=== PATIENT | male | born 1985 | race Caucasian/White ===

== ENCOUNTER 2022-10-20 13:07 | Emergency (ER) | payer BC, SELFPAY ==
[2022-10-20 13:10] VITALS: BP 161/95; PULSE 109; RESP 24; TEMP 36.8; O2SAT 99; BMI 28.3
--- NOTE | 2022-10-20 13:38 | ED_ITS ---
HPI - General Adult General Chief complaint: Altered Mental Status Stated complaint: Mental health Time Seen by Provider: 10/20/22 13:20 History of Present Illness HPI narrative: This 36-year-old male comes in reporting anxiety, insomnia, and depression symptoms. He has not been sleeping well because his recently left him. He states that she is his best friend. They have been for 17 years and are now . They have 4 children. His states that she wants to be away from him but is not taking any legal action. He states that they went on a cruise to [place] last summer and he did not have any other communication with anyone else because he was with her who is his only and best friend. After this she stated to him that she was not satisfied in the relationship and she listed several things that he could improve on. He states that he has been working on these things and some of them very successful and others not so much. He states that he has been on fluoxetine for the past 3 months or so and this has not helped him with his depression and anxiety symptoms. His is also on this medication. He states that he has lost 65 lb over the last several months because he is distraught over his current circumstances at home. He does smoke tobacco and marijuana but denies other street drugs or alcohol. He does not have any auditory or visual hallucinations. He states that he has difficulty sleeping at night because of these circumstances. Related Data Previous Rx's Medication Instructions Recorded escitalopram oxalate 10 mg tablet 10 mg PO DAILY #30 tabs 10/20/22 (Lexapro) lorazepam 1 mg tablet (Ativan) 1 mg PO BID PRN #15 tabs 10/20/22 Allergies Allergy/AdvReac Type Severity Reaction Status Date / Time No Known Drug Allergies Allergy Verified 10/20/22 13:15 Review of Systems Status of ROS: Reports: 10 or more systems reviewed and unremarkable except as noted in History and below Narrative: Constitutional: No fevers, no weight gain or loss. Eyes: No discharge. No vision changes. HENT: No congestion, no sore throat, no ear pain. Cardiovascular: No chest pain, no palpitations. Respiratory: No shortness of breath, no wheezes, no cough. Gastrointestinal: No abdominal pain, no vomiting, no diarrhea. Genitourinary: No dysuria, no hematuria. Musculoskeletal: Normal range of motion. Skin: No rashes, no pruritis. Neurological: No dizziness, weakness, sensory change, speech change. Endo/Heme/Allergies: No bruising or bleeding. No polydipsia. Pysch: Depression and anxiety symptoms. Insomnia. He has had thoughts of ending his life but states that he would never do this as he loves himself and his children and family. All other systems reviewed and are negative. PFSH PFS Social History Smoking Status: Current every day smoker What tobacco products do you use: cigarettes Second hand tobacco smoke exposure: No How often do you have a drink containing alcohol: 2-4 times a month AUDIT-C Alcohol total score: 2 Non-prescribed substance use: denies use service: No Exam Narrative: Exam Narrative: Constitutional: Well-developed, well-nourished, no acute distress. HEENT: Normocephalic, atraumatic. Neck: Normal range of motion. Nontender. Supple. Heart: Regular. No murmurs. Normal rate. Intact distal pulses. Lungs: Clear to auscultation. No chest discomfort. No wheezes, rhonchi, or rales. Abdomen: Normal bowel sounds. Nontender. No rebound tenderness. Genitalia: Deferred. Back: No midline tenderness. Normal range of motion. Extremities: Normal range of motion. No injury. Skin: Intact. No rash. Warm. No erythema or pallor. Neurologic: No altered sensation. No weakness. Alert and oriented. Psychiatric: Cooperative. Tearful. Seeking help. Anxious. Nursing notes and vitals signs are reviewed. Const: Vital Signs, click to edit/add: Vital Signs - 24 hr 10/20/22 13:10 Temperature 98.3 F Pulse Rate [Pulse Oximeter] 109 H Respiratory Rate 24 Blood Pressure [Ri t Upper Arm] 161/95 H Pulse Oximetry 99 Oxygen Delivery Me thod Room Air Course Vital Signs Vital signs: Initial Vital Signs Temperature 98.3 F 10/20/22 13:10 Temperature Source Temporal Artery Scan 10/20/22 13:10 Pulse Rate 109 H 10/20/22 13:10 Pulse Rhythm 10/20/22 13:10 Pulse Strength 3+ Normal 10/20/22 13:10 Respiratory Rate 24 10/20/22 13:10 Blood Pressure 161/95 H 10/20/22 13:10 Blood Pressure Mean 117 10/20/22 13:10 Blood Pressure Position Sitting 10/20/22 13:10 Pulse Oximetry 99 10/20/22 13:10 Oxygen Delivery Method 10/20/22 13:10 Vital Signs Temperature 98.3 F 10/20/22 13:10 Pulse Rate 109 H 10/20/22 13:10 Respiratory Rate 24 10/20/22 13:10 Blood Pressure 161/95 H 10/20/22 13:10 Pulse Oximetry 99 10/20/22 13:10 Oxygen Delivery Method 10/20/22 13:10 Temperature 98.3 F 10/20/22 13:10 Pulse Rate 109 H 10/20/22 13:10 Respiratory Rate 24 10/20/22 13:10 Blood Pressure 161/95 H 10/20/22 13:10 Pulse Oximetry 99 10/20/22 13:10 Oxygen Delivery Method 10/20/22 13:10 Medical Decision Making MDM Narrative Medical decision making narrative: This patient comes in with lots of anxiety due to a baseline depression and anxiety that is worsened with recent circumstances at home. He was constantly moving and fidgeting because of this anxiety. He did receive a mg of Ativan orally in this brought significant relief to these symptoms. A [facility] mental assessment was arranged and completed. The patient is okay to return home and a safety plan is completed for him. Arrangements are made for follow- up appointment in 1-2 days with a therapist. The patient has been taking Prozac but this does not help him at all. I did prescribe Lexapro and some tablets of Ativan to hopefully bring improvement to his symptoms of anxiety and depression. He understands that Ativan is not an ongoing treatment plan. He will be able to follow-up with his primary physician. Discharge Plan Discharge Clinical Impression: Anxiety and depression Patient Disposition: Home, Self-Care Condition: Stable Additional Instructions: Take medication as needed and indicated. Follow up with therapist as scheduled and with primary physician to review medications. Return if worsening. Prescriptions: New lorazepam [Ativan] 1 mg tablet 1 mg PO BID PRNQty: 15 0RF escitalopram oxalate [Lexapro] 10 mg tablet 10 mg PO DAILY Qty: 30 2RF Follow Up/Referrals: FARHAT SHEARER DO [Primary Care Provider] - Stand Alone Forms: [employer] Info Instructions
[2022-10-20] MEDS: LORazepam 1 MG TABLET PO (13:46)
== END 2022-10-20 16:33 | disposition home or self-care (01) ==
PROVIDERS: Emergency Provider Emergency Medicine Emergency Medical Services; PCP Student in an Organized Health Care Education/Training Program
DX: F41.9 Anxiety disorder, unspecified (principal); F32.A Depression, unspecified
CPT/HCPCS: 99283; 99284; A9270